=== PATIENT | female | born 1940 | race Caucasian/White ===

== ENCOUNTER 2019-01-05 09:57 | Emergency (ER) | payer MEDICARE ==
[~2019-01-05] VITALS: Ht 160 cm; Wt 76.2 kg
[~2019-01-05 09:57] MED LIST: LEVSOD125 PO; OMEP20ER PO
[2019-01-05] MEDS ORDERED: LEVSOD88 PO (10:22)
[2019-01-05 10:47] LABS: BASOPHILS ABSOLUTE AUTO 0.03 K/mm3 (0.00-0.23); BASOPHILS PERCENT AUTO 1 % (0-2); EOSINOPHILS ABSOLUTE AUTO 0.15 K/mm3 (0.00-0.68); EOSINOPHILS PERCENT AUTO 2 % (0-6); Hematocrit 39.5 % (33.0-51.0); Hemoglobin 13.3 g/dL (11.5-16.0); IMMATURE GRAN ABSOLUTE AUTO 0.01 K/mm3 (0.00-0.10); IMMATURE GRAN PERCENT AUTO 0 % (0-1); LYMPHOCYTES ABSOLUTE AUTO 0.84 K/mm3 (0.84-5.20); LYMPHOCYTES PERCENT AUTO 14 % (21-46); MONOCYTES PERCENT AUTO 8 % (4-13); Mean Corpuscular HGB 31.4 pg (26.0-34.0); Mean Corpuscular HGB Conc 33.7 g/dL (31.5-36.5); Mean Corpuscular Volume 93 fL (80-100); Mean Platelet Volume 10.8 fL (9.1-12.4); NEUTROPHILS PERCENT AUTO 75 % (41-73); Platelet Count 254 K/mm3 (150-400); RDW Coefficient Variation 12.7 % (11.7-14.2); RDW Standard Deviation 43.2 fL (35.1-46.3); Red Blood Cell Count 4.24 M/mm3 (3.80-5.20); White Blood Cell Count 6.13 K/mm3 (4.00-11.30)
[2019-01-05 11:21] LABS: Alanine Aminotransfer (ALT/SGP 21 U/L (12-78); Albumin, Blood 3.5 g/dL (3.4-5.0); Albumin/Globulin Ratio 0.9 (0.8-1.8); Alk Phos 79 U/L (50-136); Anion Gap 9 mmol/L (6-16); Aspartate Aminotrans (AST/SGOT 16 U/L (12-37); Bilirubin, Total 0.4 mg/dL (0.1-1.0); Blood Urea Nitrogen 10 mg/dL (8-24); Bun/Creatinine Ratio 11.8 (12.0-20.0); CO2, Blood 25 mmol/L (21-32); Calcium, Blood 9.2 mg/dL (8.5-10.1); Chloride, Blood 108 mmol/L (98-108); Creatinine, Blood 0.85 mg/dL (0.40-1.00); Globulin, Blood 3.7 g/dL (2.2-4.0); Glomerular Filtration Rate >60 (60-); Glucose, Blood 101 mg/dL (70-99); Potassium, Blood 3.7 mmol/L (3.5-5.5); Sodium, Blood 142 mmol/L (136-145); Total Protein, Blood 7.2 g/dL (6.4-8.2); Troponin I <0.015 ng/mL (0.000-0.040)
[2019-01-05] MEDS ORDERED: Norco 5-325 Ta1 EACH PO (11:53)
[2019-01-05] MEDS ORDERED: Omeprazole20 M1 PO (11:53)
[2019-01-05] MEDS ORDERED: ACYC800 PO (11:57)
== END 2019-01-05 12:11 | disposition home or self-care (01) ==
LOC: ER 09:57
PROVIDERS: Emergency Medicine
DX: K21.9 Gastro-esophageal reflux disease without esophagitis (principal); Z79.899 Other long term (current) drug therapy
CPT/HCPCS: 71046; 80053; 83690; 84484; 85025; 93005; 93010; 96374; 99285-25; J1170

== ENCOUNTER 2023-06-05 09:56 | Emergency (ER) | payer MEDICARE ==
[~2023-06-05] VITALS: Ht 160 cm; Wt 77.1 kg
[~2023-06-05 09:56] MED LIST changes: +ACYC800 PO; +LEVSOD75 PO; +Norco 5-325 Ta1 EACH PO; +Omeprazole20 M1 PO
[2023-06-05 10:28] LABS: BASOPHILS ABSOLUTE AUTO 0.05 K/mm3 (0.00-0.23); BASOPHILS PERCENT AUTO 0 % (0-2); EOSINOPHILS ABSOLUTE AUTO 0.19 K/mm3 (0.00-0.68); EOSINOPHILS PERCENT AUTO 1 % (0-6); Hematocrit 40.7 % (33.0-51.0); IMMATURE GRAN PERCENT AUTO 1 % (0-1); LYMPHOCYTES ABSOLUTE AUTO 0.67 K/mm3 (0.84-5.20); LYMPHOCYTES PERCENT AUTO 4 % (21-46); MONOCYTES PERCENT AUTO 4 % (4-13); Mean Corpuscular HGB 32.5 pg (26.0-34.0); Mean Corpuscular HGB Conc 34.4 g/dL (31.5-36.5); Mean Corpuscular Volume 94 fL (80-100); Mean Platelet Volume 10.4 fL (9.1-12.4); NEUTROPHILS ABSOLUTE AUTO 17.38 K/mm3 (1.96-9.15); NEUTROPHILS PERCENT AUTO 91 % (41-73); Platelet Count 277 K/mm3 (150-400); RDW Coefficient Variation 12.6 % (11.7-14.2); RDW Standard Deviation 43.8 fL (35.1-46.3); Red Blood Cell Count 4.31 M/mm3 (3.80-5.20); White Blood Cell Count 19.19 K/mm3 (4.00-11.30)
[2023-06-05 11:01] LABS: Albumin, Blood 3.7 g/dL (3.4-5.0); Bilirubin, Total 0.5 mg/dL (0.1-1.0); Bun/Creatinine Ratio 9.2 (12.0-20.0); Creatinine, Blood 0.87 mg/dL (0.40-1.00); Globulin, Blood 3.6 g/dL (2.2-4.0); Potassium, Blood 3.9 mmol/L (3.5-5.5); Total Protein, Blood 7.3 g/dL (6.4-8.2)
[2023-06-05 12:46] LABS: Source, Urine Clean Catch
[2023-06-05 12:52] LABS: Bilirubin, Urine Neg (Neg); Blood, Urine 3+ (Neg); Glucose Qualitative, Urine Neg (Neg); Ketones, Urine Neg (Neg); Leukocyte Esterase, Urine 2+ (Neg); Nitrite, Urine Neg (Neg); Protein, Urine 1+ (Neg); Urobilinogen, Urine NORM (Normal)
[2023-06-05 12:59] LABS: Appearance, Urine Clear (Clear); Color, Urine Pale Yellow (P-Yellow)
[2023-06-05 13:00] LABS: Mucus Light (0-Heavy)
[2023-06-05 13:01] LABS: Bacteria Rare /hpf; Squamous Epithelial Cells Few /hpf (Few)
[2023-06-05 15:33] VITALS: BP 131/58
[2023-06-09] MEDS ORDERED: CEFTRIAXONE2 G1 IV (17:05)
[2023-06-09] MEDS ORDERED: XARELTO20 MG PO (17:06)
[2023-06-09] MEDS ORDERED: METO25 PO (17:06)
== END 2023-06-05 15:45 | disposition home or self-care (01) ==
LOC: ER 09:56
PROVIDERS: Student in an Organized Health Care Education/Training Program
DX: R55 Syncope and collapse (principal); R77.8 Other specified abnormalities of plasma proteins; Z79.899 Other long term (current) drug therapy; K21.9 Gastro-esophageal reflux disease without esophagitis; E03.9 Hypothyroidism, unspecified
CPT/HCPCS: 71046; 80053; 81001; 83690; 83880; 84484; 85025; 87086; 93005; 93010; 96374; 99284-25; A9270; J2405; J7030

== ENCOUNTER 2023-06-07 08:50 | Inpatient (IN) | payer MEDICARE ==
[~2023-06-07] VITALS: Ht 160 cm; Wt 77.8 kg
[2023-06-07 11:02] LABS: BASOPHILS ABSOLUTE AUTO 0.04 K/mm3 (0.00-0.23); BASOPHILS PERCENT AUTO 0 % (0-2); EOSINOPHILS ABSOLUTE AUTO 0.02 K/mm3 (0.00-0.68); EOSINOPHILS PERCENT AUTO 0 % (0-6); Hematocrit 38.8 % (33.0-51.0); Hemoglobin 13.3 g/dL (11.5-16.0); IMMATURE GRAN ABSOLUTE AUTO 0.07 K/mm3 (0.00-0.10); IMMATURE GRAN PERCENT AUTO 1 % (0-1); LYMPHOCYTES ABSOLUTE AUTO 0.38 K/mm3 (0.84-5.20); LYMPHOCYTES PERCENT AUTO 3 % (21-46); MONOCYTES ABSOLUTE AUTO 0.85 K/mm3 (0.16-1.47); MONOCYTES PERCENT AUTO 6 % (4-13); Mean Corpuscular HGB 31.7 pg (26.0-34.0); Mean Corpuscular HGB Conc 34.3 g/dL (31.5-36.5); Mean Corpuscular Volume 93 fL (80-100); Mean Platelet Volume 10.7 fL (9.1-12.4); NEUTROPHILS ABSOLUTE AUTO 13.68 K/mm3 (1.96-9.15); NEUTROPHILS PERCENT AUTO 91 % (41-73); Platelet Count 209 K/mm3 (150-400); RDW Coefficient Variation 12.7 % (11.7-14.2); RDW Standard Deviation 43.5 fL (35.1-46.3); Red Blood Cell Count 4.19 M/mm3 (3.80-5.20); White Blood Cell Count 15.04 K/mm3 (4.00-11.30)
[2023-06-07 11:23] LABS: Albumin, Blood 3.3 g/dL (3.4-5.0); Albumin/Globulin Ratio 0.8 (0.8-1.8); BAND PERCENT MAN 4 % (0-8); BASOPHILS PERCENT MAN 0 % (0-2); Bilirubin, Total 0.6 mg/dL (0.1-1.0); Bun/Creatinine Ratio 10.8 (12.0-20.0); Calcium, Blood 8.8 mg/dL (8.5-10.1); Creatinine, Blood 0.93 mg/dL (0.40-1.00); EOSINOPHILS PERCENT MAN 0 % (0-6); Globulin, Blood 4.1 g/dL (2.2-4.0); LYMPHOCYTES ABSOLUTE MAN 0.45 K/mm3 (0.84-5.20); LYMPHOCYTES PERCENT MAN 3 % (21-46); METAMYELOCYTE ABSOLUTE MAN 0.15 K/mm3 (0.00-0.00); METAMYELOCYTE PERCENT MAN 1 % (0-0); MONOCYTES PERCENT MAN 6 % (4-13); NEUTROPHILS ABSOLUTE MAN 13.53 K/mm3 (1.96-9.15); Potassium, Blood 4.1 mmol/L (3.5-5.5); SEG NEUTROPHILS PERCENT MAN 86 % (41-73); TOTAL CELLS COUNTED 100; Total Protein, Blood 7.4 g/dL (6.4-8.2)
[2023-06-07 12:00] LABS: Source, Urine Clean Catch
[2023-06-07 12:04] LABS: Appearance, Urine Clear (Clear); Bilirubin, Urine Neg (Neg); Blood, Urine 4+ (Neg); Color, Urine Yellow (P-Yellow); Glucose Qualitative, Urine Neg (Neg); Ketones, Urine 2+ (Neg); Leukocyte Esterase, Urine 2+ (Neg); Nitrite, Urine Neg (Neg); Protein, Urine 3+ (Neg); Urobilinogen, Urine NORM (Normal); pH, Urine 6.5 (5.0-8.0)
[2023-06-07 12:15] LABS: Bacteria Rare /hpf; Squamous Epithelial Cells Rare /hpf (Few)
[2023-06-07 15:54] LABS: Anti-Xa UFH, PHA Monitoring <0.10 IU/mL; International Normalized Ratio 0.99; Prothrombin Time Results 10.4 Sec (9.7-11.5)
[2023-06-07 17:39] VITALS: BP 146/68
--- NOTE | 2023-06-07 19:16 | NUR ---
ADMIT NOTE NEW ADMIT FROM ER FOR AFIB RVR. ARRIVED TO ROOM ON GURNEY. SBA TO STAND AND TRANSFER TO BED. ALERT AND ORIENTED AND PLEASANT. DENIES CHEST PAIN OR SHORTNESS OF BREATH. REPORT MILD CHEST PALPITATIONS. NOTED TO BE IN AFIB ON TELE RATE 105. ROOM AIR. ELEVATED SBP IN 140S. ABLE TO VOID. PROVIDED WITH WATER. ADMISSION COMPLETED. ON TELE RYTHYM ALTERNATED BETWEEN AFIB RVR 100S AND NSR IN 60S. NOTED ALSO ONE 3 SEC PAUSE. PVCS PRESENT. HEPARIN GTT STARTED AND ABX RUNNING. REPORT GIVEN TO LEAK PATCHER RN.
[2023-06-07 19:17] VITALS: BP 150/62
[2023-06-08 00:51] VITALS: BP 139/66
[2023-06-08 03:52] VITALS: BP 123/62
[2023-06-08 03:59] LABS: BASOPHILS ABSOLUTE AUTO 0.04 K/mm3 (0.00-0.23); BASOPHILS PERCENT AUTO 1 % (0-2); EOSINOPHILS ABSOLUTE AUTO 0.03 K/mm3 (0.00-0.68); EOSINOPHILS PERCENT AUTO 0 % (0-6); Hematocrit 32.6 % (33.0-51.0); Hemoglobin 11.1 g/dL (11.5-16.0); IMMATURE GRAN ABSOLUTE AUTO 0.03 K/mm3 (0.00-0.10); IMMATURE GRAN PERCENT AUTO 0 % (0-1); LYMPHOCYTES ABSOLUTE AUTO 0.94 K/mm3 (0.84-5.20); LYMPHOCYTES PERCENT AUTO 11 % (21-46); MONOCYTES ABSOLUTE AUTO 0.74 K/mm3 (0.16-1.47); MONOCYTES PERCENT AUTO 9 % (4-13); Mean Corpuscular HGB 31.8 pg (26.0-34.0); Mean Corpuscular Volume 93 fL (80-100); Mean Platelet Volume 10.8 fL (9.1-12.4); NEUTROPHILS PERCENT AUTO 79 % (41-73); Platelet Count 214 K/mm3 (150-400); RDW Coefficient Variation 12.7 % (11.7-14.2); RDW Standard Deviation 43.5 fL (35.1-46.3); Red Blood Cell Count 3.49 M/mm3 (3.80-5.20); White Blood Cell Count 8.38 K/mm3 (4.00-11.30)
--- NOTE | 2023-06-08 04:27 | NUR ---
SHIFT SUMMARY: PT ALERT AND ORIENTED X4, ABLE TO FOLLOW COMMANDS AND MAKE NEEDS KNOWN. COOPERATIVE WITH CARE. STRENGTH EQUAL BILATERALLY. BP STABLE. HR SB 50'S THROUGHOUT THE NIGHT, DENIES CP/PRESSURE. PULSES STRONG AND EQUAL THROUGHOUT. SATS >96% ON ROOM AIR. RESPIRATIONS EVEN AND UNLABORED. PT WITH 101 TEMP @0000 VITALS, ORDERS RECEIVED FOR PRN TYLENOL. TEMP NOW 97.7. DILT REMAINS ON STANDBY. HEPARIN GTT IN R. FOREARM @15UNITS/KG/HR. PT WITH POSITIVE BLOOD CULTURES, NOTIFIED. PT WITH REDDNESS TO L.HIP AND THIGH, WARM TO TOUCH. DENIES PAIN. PT SBA TO AND FROM BATHROOM. NO BM THIS SHIFT. GOOD URINARY OUTPUT. BED IN LOW, CALL LIGHT IN REACH, WILL REPORT TO ONCOMING RN.
[2023-06-08 04:29] LABS: Albumin, Blood 2.6 g/dL (3.4-5.0); Albumin/Globulin Ratio 0.8 (0.8-1.8); Bilirubin, Total 0.6 mg/dL (0.1-1.0); Bun/Creatinine Ratio 11.5 (12.0-20.0); Calcium, Blood 8.3 mg/dL (8.5-10.1); Creatinine, Blood 0.96 mg/dL (0.40-1.00); Globulin, Blood 3.3 g/dL (2.2-4.0); Potassium, Blood 3.4 mmol/L (3.5-5.5); Total Protein, Blood 5.9 g/dL (6.4-8.2)
[2023-06-08 08:16] VITALS: BP 138/70
[2023-06-08 11:10] VITALS: BP 148/67
[2023-06-08 14:59] VITALS: BP 158/83
--- NOTE | 2023-06-08 15:09 | NUR ---
TRANSFER NOTE ALERT, ORIENTED, COOPERATIVE. SBA WITH IV POLE TO BATHROOM. SPO2 STABLE ABOVE 92% ON RA. TELE SB-SR IN 55-65. OCCASIONAL RUNS OF SVT AND PVCS. BP ELEVATED AT 140 SYSTOLIC. DENIES CP, SOB, OR PALPITATIONS. TOLERATING CARDIAC DIET AND LIQUIDS. VOIDING WELL. LEFT HIP CELLULITIS BORDERS MARKED BY DR ALTAMIRANO. BLOOD CULTURES BACK, ABX SWITCHED TO ROCEPHIN. HEPARIN STOPPED, ELIQUIS STARTED. WORKED WITH PT. REPORT GIVEN TO MEDICAL FLOOR RN. PATIENT LEFT UNIT FOR MEDICAL FLOOR ROOM 302 AT 1500 VIA WHEELCHAIR.
--- NOTE | 2023-06-08 16:49 | NUR ---
"Spiritual Care Visit | Pt. Request Pt. is awake in bed and welcomes my visit. Pt. is pleasant. Facilitated a life review. Pt. displays evidence of some anxiety about being in the hospital and verbalizes that she is not a woman that practices her jeff. Listen with empathy and a calming presence. Normalized the Pt. expereince and gave some words of motivation and encouragement. Pt. verbalized gratitude for the visit and request this db2 systems programmer to return in the morning if possible."
--- NOTE | 2023-06-08 17:54 | NUR ---
SHIFT SUMMARY: ASSUMED CARE OF PATIENT UPON HER TRANSFER FROM PCU 7. SHE IS A&O X 4, PLEASANT. ON TELEMETRY, SR 68, NO SVT NOTED SINCE TRANSFER. GETTING UP TO BR INDEPENDENTLY. ERYTHEMA ON L HIP IS WELL WITHIN THE MARKED BORDER, NO OPEN AREAS NOTED. DENIES PAIN.
[2023-06-08 19:35] VITALS: BP 167/87
--- NOTE | 2023-06-09 04:28 | NUR ---
SHIFT SUMMARY PT IS A&O4, INDEPENDENT IN THE ROOM, RA, VSS, NO COMPLAINTS OF PAIN OR DISCOMFORT OVERNIGHT, CONTINUE POC
[2023-06-09 05:01] LABS: BASOPHILS ABSOLUTE AUTO 0.05 K/mm3 (0.00-0.23); BASOPHILS PERCENT AUTO 1 % (0-2); EOSINOPHILS ABSOLUTE AUTO 0.26 K/mm3 (0.00-0.68); EOSINOPHILS PERCENT AUTO 4 % (0-6); Hematocrit 35.3 % (33.0-51.0); Hemoglobin 11.8 g/dL (11.5-16.0); IMMATURE GRAN ABSOLUTE AUTO 0.02 K/mm3 (0.00-0.10); IMMATURE GRAN PERCENT AUTO 0 % (0-1); LYMPHOCYTES ABSOLUTE AUTO 1.05 K/mm3 (0.84-5.20); LYMPHOCYTES PERCENT AUTO 18 % (21-46); MONOCYTES ABSOLUTE AUTO 0.84 K/mm3 (0.16-1.47); MONOCYTES PERCENT AUTO 14 % (4-13); Mean Corpuscular HGB 31.4 pg (26.0-34.0); Mean Corpuscular HGB Conc 33.4 g/dL (31.5-36.5); Mean Corpuscular Volume 94 fL (80-100); Mean Platelet Volume 11.4 fL (9.1-12.4); NEUTROPHILS ABSOLUTE AUTO 3.76 K/mm3 (1.96-9.15); NEUTROPHILS PERCENT AUTO 63 % (41-73); Platelet Count 244 K/mm3 (150-400); RDW Coefficient Variation 12.5 % (11.7-14.2); RDW Standard Deviation 43.6 fL (35.1-46.3); Red Blood Cell Count 3.76 M/mm3 (3.80-5.20); White Blood Cell Count 5.98 K/mm3 (4.00-11.30)
[2023-06-09 05:33] LABS: Albumin, Blood 2.8 g/dL (3.4-5.0); Albumin/Globulin Ratio 0.8 (0.8-1.8); Bilirubin, Total 0.3 mg/dL (0.1-1.0); Bun/Creatinine Ratio 13.8 (12.0-20.0); Calcium, Blood 8.7 mg/dL (8.5-10.1); Creatinine, Blood 0.87 mg/dL (0.40-1.00); Globulin, Blood 3.5 g/dL (2.2-4.0); Potassium, Blood 3.8 mmol/L (3.5-5.5); Total Protein, Blood 6.3 g/dL (6.4-8.2)
[2023-06-09 07:33] VITALS: BP 171/74
[2023-06-09 16:07] VITALS: BP 209/89
[2023-06-09] MEDS ORDERED: CEFTRIAXONE2 G1 IV ×2 (17:05)
[2023-06-09] MEDS ORDERED: METO25 PO ×2 (17:06)
[2023-06-09] MEDS ORDERED: XARELTO20 MG PO ×2 (17:06)
== END 2023-06-09 18:46 | disposition home or self-care (01) | DRG 872 ==
LOC: ER 08:50 → PCU 15:10 → MEDS 06-08 14:57 → ENPENDDIS 06-09 16:41 → MEDS 06-09 18:46
PROVIDERS: Emergency Medicine; Physician Assistant; ADMIT Internal Medicine
DX: A41.9 Sepsis, unspecified organism (principal); L03.116 Cellulitis of left lower limb; I48.0 Paroxysmal atrial fibrillation; K21.9 Gastro-esophageal reflux disease without esophagitis; B95.1 Streptococcus, group B, as the cause of diseases classified elsewhere; E66.9 Obesity, unspecified; E78.5 Hyperlipidemia, unspecified; E03.9 Hypothyroidism, unspecified; R79.1 Abnormal coagulation profile; Z85.44 Personal history of malignant neoplasm of other female genital organs; Z79.890 Hormone replacement therapy; Z90.89 Acquired absence of other organs; Z90.710 Acquired absence of both cervix and uterus; Z68.30 Body mass index [BMI] 30.0-30.9, adult
CPT/HCPCS: 36415; 71046; 71260; 76882; 80053; 81001; 83605; 83880; 84145; 84443; 84484; 85025; 85379; 85520; 85610; 85730; 87040; 87147; 93005; 93010; 93306; 96365-59; 96375-59; 96376-59; 97116; 97162; 99285-25; A9270; C1751; J0696; J1644; J2543; J3370; J7030; J7050; Q9967

== ENCOUNTER 2023-06-10 00:14 | Day surgery (SDC) | payer MEDICARE ==
[~2023-06-10 00:14] MED LIST changes: +CEFTRIAXONE2 G1 IV; +METO25 PO; +XARELTO20 MG PO
[2023-06-10 15:09] VITALS: BP 140/75
== END 2023-06-10 15:20 | disposition home or self-care (01) ==
LOC: ATC 00:14
DX: R78.81 Bacteremia (principal); B95.62 Methicillin resistant Staphylococcus aureus infection as the cause of diseases classified elsewhere; E03.9 Hypothyroidism, unspecified; E78.5 Hyperlipidemia, unspecified; I48.91 Unspecified atrial fibrillation
CPT/HCPCS: 96365; J0696

== ENCOUNTER 2023-06-11 03:45 | Day surgery (SDC) | payer MEDICARE ==
[2023-06-11 14:45] VITALS: BP 132/63
== END 2023-06-11 15:04 | disposition home or self-care (01) ==
LOC: ATC 03:45
DX: R78.81 Bacteremia (principal); B95.4 Other streptococcus as the cause of diseases classified elsewhere; I48.91 Unspecified atrial fibrillation; E03.9 Hypothyroidism, unspecified; E78.5 Hyperlipidemia, unspecified; Z79.890 Hormone replacement therapy
CPT/HCPCS: 96365; J0696

== ENCOUNTER 2023-06-12 00:11 | Day surgery (SDC) | payer MEDICARE ==
[2023-06-12 14:38] VITALS: BP 144/70
== END 2023-06-12 15:10 | disposition home or self-care (01) ==
LOC: ATC 00:11
DX: R78.81 Bacteremia (principal); B95.4 Other streptococcus as the cause of diseases classified elsewhere; I48.91 Unspecified atrial fibrillation; E66.9 Obesity, unspecified; E03.9 Hypothyroidism, unspecified; E78.5 Hyperlipidemia, unspecified
CPT/HCPCS: 96365; J0696

== ENCOUNTER 2023-06-13 08:37 | Day surgery (SDC) | payer MEDICARE ==
[2023-06-13 11:08] VITALS: BP 163/81
== END 2023-06-13 11:33 | disposition home or self-care (01) ==
LOC: ATC 08:37
DX: R78.81 Bacteremia (principal); B95.4 Other streptococcus as the cause of diseases classified elsewhere; E03.9 Hypothyroidism, unspecified; E78.5 Hyperlipidemia, unspecified; I48.91 Unspecified atrial fibrillation
CPT/HCPCS: 96365; J0696

== ENCOUNTER 2023-06-14 02:29 | Day surgery (SDC) | payer MEDICARE ==
[2023-06-14 10:54] VITALS: BP 163/87
== END 2023-06-14 11:15 | disposition home or self-care (01) ==
LOC: ATC 02:29
DX: R78.81 Bacteremia (principal); I48.91 Unspecified atrial fibrillation; B95.4 Other streptococcus as the cause of diseases classified elsewhere
CPT/HCPCS: 96365; J0696

== ENCOUNTER 2023-06-15 00:44 | Day surgery (SDC) | payer MEDICARE ==
[2023-06-15 11:01] VITALS: BP 152/73
== END 2023-06-15 11:20 | disposition home or self-care (01) ==
LOC: ATC 00:44
DX: R78.81 Bacteremia (principal); B95.4 Other streptococcus as the cause of diseases classified elsewhere; I48.91 Unspecified atrial fibrillation
CPT/HCPCS: 96365; J0696

== ENCOUNTER 2023-06-16 00:15 | Day surgery (SDC) | payer MEDICARE ==
[2023-06-16 11:10] VITALS: BP 177/64
[2023-06-17] MEDS ORDERED: EUTHYROX75 MC1 PO (10:40)
[2023-06-17] MEDS ORDERED: XARELTO20 MG PO (10:41)
[2023-06-17] MEDS ORDERED: METO25 PO (10:41)
== END 2023-06-16 11:25 | disposition home or self-care (01) ==
LOC: ATC 00:15
DX: R78.81 Bacteremia (principal); B95.4 Other streptococcus as the cause of diseases classified elsewhere; I48.91 Unspecified atrial fibrillation
CPT/HCPCS: 96365; J0696

== ENCOUNTER 2023-06-17 00:52 | Day surgery (SDC) | payer MEDICARE ==
[2023-06-17 10:32] VITALS: BP 159/62
[2023-06-17] MEDS ORDERED: EUTHYROX75 MC1 PO (10:40)
[2023-06-17] MEDS ORDERED: METO25 PO (10:41)
[2023-06-17] MEDS ORDERED: XARELTO20 MG PO (10:41)
[2023-06-18] MEDS ORDERED: CEFTRIAXONE2 G1 IV (11:04)
== END 2023-06-17 10:53 | disposition home or self-care (01) ==
LOC: ATC 00:52
DX: R78.81 Bacteremia (principal); I48.91 Unspecified atrial fibrillation; B95.4 Other streptococcus as the cause of diseases classified elsewhere
CPT/HCPCS: 96365; J0696

== ENCOUNTER 2023-06-18 00:06 | Day surgery (SDC) | payer MEDICARE ==
[~2023-06-18 00:06] MED LIST changes: +EUTHYROX75 MC1 PO
[2023-06-18 10:25] VITALS: BP 159/64
[2023-06-18] MEDS ORDERED: CEFTRIAXONE2 G1 IV (11:04)
== END 2023-06-18 11:20 | disposition home or self-care (01) ==
LOC: ATC 00:06
DX: R78.81 Bacteremia (principal); B95.4 Other streptococcus as the cause of diseases classified elsewhere; E03.9 Hypothyroidism, unspecified; E78.5 Hyperlipidemia, unspecified; Z79.890 Hormone replacement therapy
CPT/HCPCS: 96365; J0696

== ENCOUNTER 2023-06-19 01:20 | Day surgery (SDC) | payer MEDICARE ==
[2023-06-19 11:03] VITALS: BP 151/80
== END 2023-06-19 11:16 | disposition home or self-care (01) ==
LOC: ATC 01:20
DX: R78.81 Bacteremia (principal); B95.4 Other streptococcus as the cause of diseases classified elsewhere; I48.91 Unspecified atrial fibrillation; E03.9 Hypothyroidism, unspecified; E78.5 Hyperlipidemia, unspecified; Z79.890 Hormone replacement therapy
CPT/HCPCS: J0696

== ENCOUNTER 2023-06-20 00:59 | Day surgery (SDC) | payer MEDICARE ==
[2023-06-20 11:13] VITALS: BP 195/81
== END 2023-06-20 11:37 | disposition home or self-care (01) ==
LOC: ATC 00:59
DX: R78.81 Bacteremia (principal); B95.4 Other streptococcus as the cause of diseases classified elsewhere; E66.9 Obesity, unspecified; E03.9 Hypothyroidism, unspecified; E78.5 Hyperlipidemia, unspecified; L03.90 Cellulitis, unspecified; I48.91 Unspecified atrial fibrillation
CPT/HCPCS: J0696

== ENCOUNTER 2023-06-21 01:19 | Day surgery (SDC) | payer MEDICARE ==
[2023-06-21 10:56] VITALS: BP 167/78
== END 2023-06-21 11:22 | disposition home or self-care (01) ==
LOC: ATC 01:19
DX: R78.81 Bacteremia (principal); B95.4 Other streptococcus as the cause of diseases classified elsewhere; E03.9 Hypothyroidism, unspecified; E78.5 Hyperlipidemia, unspecified
CPT/HCPCS: 96365; J0696

== ENCOUNTER 2024-10-22 05:37 | Day surgery (SDC) | payer MEDICARE ==
[2024-10-22] VITALS (21 sets, daily range): BP systolic 80–145; BP diastolic 45–123
[~2024-10-22] VITALS: Ht 160 cm; Wt 67.5 kg
[~2024-10-22 05:37] MED LIST changes: +CEPH500 PO; +METO25ER PO
[2024-10-22] MEDS ORDERED: Acetaminophen 500 MG Tab PO SCH ×2 (06:20→16:00)
[2024-10-22] MEDS ORDERED: OxyCODONE HCL 10 MG TABCR PO SCH (06:20)
[2024-10-22] MEDS ORDERED: Lactated Ringer's 1,000 ML IV SCH ×2 (06:20→09:30)
[2024-10-22] MEDS ORDERED: Chlorhexidine Mouth Care 15 ML UDC MT SCH (06:20)
[2024-10-22] MEDS ORDERED: CeFAZolin Sodium 2,000 MG in NS 100 ML IV SCH ×2 (06:20→16:00)
[2024-10-22] MEDS ORDERED: Ropivacaine 0.5% HCl/Pf 123.125 MG,EPINEPHrine HCL 0.25 MG,Ketorolac Tromethamine 15 MG... INFIL SCH (06:20)
[2024-10-22] MEDS ORDERED: Tranexamic Acid 1,000 MG in NS 100 ML IV SCH (06:20)
[2024-10-22] MEDS ORDERED: CeFAZolin Sodium 2,000 MG VIAL ONE (06:57)
[2024-10-22] MEDS ORDERED: ePHEDrine Sulfate 50 MG/ML 1ML Injection ONE (07:03)
[2024-10-22] MEDS ORDERED: Phenylephrine HCl 100 MCG/ML-NS 10MLSYR (1MG/10ML) ONE (07:04)
[2024-10-22] MEDS ORDERED: Bupivacaine 0.5% HCl 5 MG/ML 30MLVIAL ONE (07:04)
[2024-10-22] MEDS ORDERED: Midazolam HCl 1MG / ML 2ML Vial ONE (07:04)
[2024-10-22] MEDS ORDERED: Dexamethasone Sod Phos 10 MG/ML 1ML VIAL ONE (07:04)
[2024-10-22] MEDS ORDERED: Ketorolac Tromethamine 30mg Vial ONE (07:04)
[2024-10-22] MEDS ORDERED: Ondansetron HCl 2 MG / ML 2ML Vial ONE (07:04)
[2024-10-22] MEDS ORDERED: propofoL 20 ML IV ONE (07:06)
--- NOTE | 2024-10-22 07:12 | NUR ---
History, Chart, Medications and Allergies reviewed before start of procedure. Pre-Op teaching done. Pt verbalizes understanding. Patient confirms NPO status and agrees with scheduled surgery. PT BELONGINGS BAG PLACED UNDER GURNEY. PT WALKING STICK GIVEN TO DAUGHTER IN LAW AT BS.
[2024-10-22] MEDS ORDERED: Glycopyrrolate 0.2 MG/ML 5ML VIAL ONE (07:57)
[2024-10-22] MEDS ORDERED: Labetalol HCL 5 MG/ML 4ML Injection (Single Dose) ONE ×2 (08:04→08:23)
[2024-10-22] MEDS ORDERED: Prochlorperazine Edisylate 10 mg Vial IV PRN (09:20)
[2024-10-22] MEDS ORDERED: Promethazine HCl 25 MG Tab PO PRN (09:20)
[2024-10-22] MEDS ORDERED: OxyCODONE HCL 5 MG TAB PO PRN ×2 (09:25)
[2024-10-22] MEDS ORDERED: Metoclopramide HCl 5MG / ML 2ML Vial IV PRN (09:25)
[2024-10-22] MEDS ORDERED: FLU VACC TS2024-25(6MOS UP)/PF 45 MCG/0.5 ML SYRINGE IM SCH (09:25)
[2024-10-22] MEDS ORDERED: HYDROmorphone HCl/Pf 1MG SYR IV PRN (09:25)
[2024-10-22] MEDS ORDERED: Ondansetron HCl 2 MG / ML 2ML Vial IV PRN (09:25)
[2024-10-22] MEDS ORDERED: Bisacodyl 10 MG Supp PR PRN (09:30)
[2024-10-22] MEDS ORDERED: Magnesium Hydroxide Conc 10 ML UDC PO PRN (09:30)
[2024-10-22] MEDS ORDERED: DiphenhydrAMINE HCL 25 MG Cap PO PRN (09:30)
[2024-10-22] MEDS ORDERED: Tranexamic Acid 100 ML IV ONE (10:40)
[2024-10-22] MEDS ORDERED: Metoprolol Succinate 50 MG TABCR PO ONE (11:50)
[2024-10-22] MEDS ORDERED: Ketorolac Tromethamine 15mg Vial IV SCH (12:00)
--- NOTE | 2024-10-22 13:20 | NUR ---
ASUMPTION OF CARE ASSUMED CARE OF PT AT APPROXIMATELY 1250. PT A&Ox4, CALLS AND COMMUNICATES NEEDS APPROPRIATELY. BP STABLE, AFLUTTER 90-120's, DENIES CP/PRESSURE. SpO2> 92% RA, DENIES SOB. PT ABLE TO FEEL AND MOVE BOTH FEET. DENIES PAIN. AQUACEL DRESSING ON R HIP C/D/I. PT RESTING IN BED, CALL LIGHT IN REACH.
--- NOTE | 2024-10-22 15:00 | NUR ---
UPDATE PT CONVERTED TO SINUS DEBBIE 40's FROM AFLUTTER AT 1430, HYPOTENSIVE WITH SBP 80-90's, MAP 55-60's, ASYMPOMATIC. PHYSICIAN NOTIFIED - ORDERS PLACED FOR 500ml BOLUS.
[2024-10-22] MEDS ORDERED: NS 500 ML IV ONE (15:30)
--- NOTE | 2024-10-22 17:13 | NUR ---
SHIFT SUMMARY SEE PREVIOUS NOTES. A&Ox4, CALLS AND COMMUNICATES NEEDS APPROPRAITELY. BP IMPORVED AFTER 500ml BOLUS; SBP 90-100's, MAP> 65, ASYMPTOMATIC. SINUS 40-60's ASYMPTOMATIC, DENIES CP/PRESSURE. REPORTS MILD SORENESS, MANAGED WITH SCHEDULED MEDICATIONS. PT OOB WITH 1 ASSIST & FWW. NO OTHER EVENTS, WILL REPORT TO ONCOMING RN.
[2024-10-22] MEDS ORDERED: Docusate Sodium 100 MG Cap PO SCH (21:00)
[2024-10-23] VITALS: BP 108/42
[2024-10-23 03:54] LABS: BASOPHILS ABSOLUTE AUTO 0.02 K/mm3 (0.00-0.23); BASOPHILS PERCENT AUTO 0 % (0-2); EOSINOPHILS ABSOLUTE AUTO 0.09 K/mm3 (0.00-0.68); EOSINOPHILS PERCENT AUTO 1 % (0-6); Hematocrit 29.8 % (33.0-51.0); Hemoglobin 9.9 g/dL (11.5-16.0); IMMATURE GRAN ABSOLUTE AUTO 0.02 K/mm3 (0.00-0.10); IMMATURE GRAN PERCENT AUTO 0 % (0-1); LYMPHOCYTES ABSOLUTE AUTO 1.28 K/mm3 (0.84-5.20); LYMPHOCYTES PERCENT AUTO 15 % (21-46); MONOCYTES ABSOLUTE AUTO 0.93 K/mm3 (0.16-1.47); MONOCYTES PERCENT AUTO 11 % (4-13); Mean Corpuscular HGB 30.6 pg (26.0-34.0); Mean Corpuscular HGB Conc 33.2 g/dL (31.5-36.5); Mean Corpuscular Volume 92 fL (80-100); Mean Platelet Volume 10.8 fL (9.1-12.4); NEUTROPHILS ABSOLUTE AUTO 6.32 K/mm3 (1.96-9.15); NEUTROPHILS PERCENT AUTO 73 % (41-73); Platelet Count 201 K/mm3 (150-400); RDW Coefficient Variation 13.9 % (11.7-14.2); RDW Standard Deviation 46.5 fL (35.1-46.3); Red Blood Cell Count 3.24 M/mm3 (3.80-5.20); White Blood Cell Count 8.66 K/mm3 (4.00-11.30)
[2024-10-23 04:00] VITALS: BP 129/52
[2024-10-23 04:24] LABS: Bun/Creatinine Ratio 12.3 (12.0-20.0); Calcium, Blood 8.4 mg/dL (8.5-10.1); Creatinine, Blood 0.9 mg/dL (0.40-1.00); Potassium, Blood 3.5 mmol/L (3.5-5.5)
[2024-10-23] MEDS ORDERED: Levothyroxine Sodium 0.075 MG Tab PO SCH (06:00)
[2024-10-23 07:51] VITALS: BP 146/77
[2024-10-23] MEDS ORDERED: Rivaroxaban 10 MG Tab PO SCH (09:00)
[2024-10-23] MEDS ORDERED: Metoprolol Succinate 25 MG TABCR PO SCH ×2 (09:00)
[2024-10-23 11:11] VITALS: BP 144/62
--- NOTE | 2024-10-23 12:25 | NUR ---
PT [id number] FROM PCU 19. DISCHARGE INSTRUCTIONS WENT OVER WITH THE PT AND HER DAUGHTER. VS ROSE TY .ON TELE SHE IS SB 40'S-60'S. BP STABLE .METOPROLOL NOT GIVEN D/T HR. DISCUSSED W/ DR. SHAW. PARAMETERS OBATINED FOR THE MEDICATION FOR DISCHARGE. SHE IS POD1 FROM [facility]. AQACEL REMAIN C/D/I. PAIN MANAGED WITH ORAL MEDICATIONS. NO URTHER NOTES.
== END 2024-10-23 12:21 | disposition home or self-care (01) ==
LOC: ORSCMMR 05:37 → ORD 07:30 → ORSCMMR 07:30 → PCU 09:54 → ORSCMMR 10-23 12:21
PROVIDERS: Orthopaedic Surgery
PROC: 0SR90J9 Replacement of Right Hip Joint with Synthetic Substitute, Cemented, Open Approach (ICD-10-PCS; principal; 2024-10-22 07:30)
DX: M16.11 Unilateral primary osteoarthritis, right hip (principal); M87.9 Osteonecrosis, unspecified; I10 Essential (primary) hypertension; I48.91 Unspecified atrial fibrillation; E03.9 Hypothyroidism, unspecified; Z79.899 Other long term (current) drug therapy
CPT/HCPCS: 36415; 72170; 80048; 85025; 97110; 97116; 97162; 97530; A6010; A9270; C1713; C1776; J0171; J0690; J0735; J1100; J1171; J1885; J2250; J2371; J2405; J2704; J2795; J7040; J7120

== ENCOUNTER 2025-05-16 11:25 | Emergency (ER) | payer MEDICARE ==
[~2025-05-16] VITALS: Ht 160 cm; Wt 68.0 kg
[2025-05-16 11:53] LABS: BASOPHILS ABSOLUTE AUTO 0.05 K/mm3 (0.00-0.23); BASOPHILS PERCENT AUTO 0 % (0-2); EOSINOPHILS ABSOLUTE AUTO 0.04 K/mm3 (0.00-0.68); EOSINOPHILS PERCENT AUTO 0 % (0-6); Hematocrit 45.8 % (33.0-51.0); Hemoglobin 15.1 g/dL (11.5-16.0); IMMATURE GRAN ABSOLUTE AUTO 0.03 K/mm3 (0.00-0.10); IMMATURE GRAN PERCENT AUTO 0 % (0-1); LYMPHOCYTES ABSOLUTE AUTO 1.66 K/mm3 (0.84-5.20); LYMPHOCYTES PERCENT AUTO 14 % (21-46); MONOCYTES ABSOLUTE AUTO 0.91 K/mm3 (0.16-1.47); MONOCYTES PERCENT AUTO 8 % (4-13); Mean Corpuscular HGB Conc 33.0 g/dL (31.5-36.5); Mean Corpuscular Volume 89 fL (80-100); NEUTROPHILS ABSOLUTE AUTO 9.01 K/mm3 (1.96-9.15); NEUTROPHILS PERCENT AUTO 77 % (41-73); NRBC ABSOLUTE 0.00 K/mm3 (0.00-0.02); NRBC Auto 0.0 /100 WBC (0.0-0.2); Platelet Count 406 K/mm3 (150-400); RDW Coefficient Variation 14.2 % (11.7-14.2); RDW Standard Deviation 45.9 fL (35.1-46.3)
[2025-05-16] MEDS ORDERED: Diltiazem HCl 5 MG / ML 5ML Vial IV ONE ×2 (11:55→12:15)
[2025-05-16] MEDS ORDERED: NS 1,000 ML IV SCH (12:15)
[2025-05-16 12:59] LABS: Alanine Aminotransfer (ALT/SGP 20.0 U/L (12-78); Albumin, Blood 3.8 g/dL (3.4-5.0); Albumin/Globulin Ratio 0.8 (0.8-1.8); Anion Gap 12.0 mmol/L (3-11); Aspartate Aminotrans (AST/SGOT 28.0 U/L (12-37); Bilirubin, Total 0.5 mg/dL (0.1-1.0); Blood Urea Nitrogen 10.0 mg/dL (8-24); CO2, Blood 20.0 mmol/L (21-32); Calcium, Blood 9.5 mg/dL (8.5-10.1); Chloride, Blood 108.0 mmol/L (98-108); Creatinine, Blood 0.85 mg/dL (0.40-1.00); Globulin, Blood 4.8 g/dL (2.2-4.0); Glucose, Blood 114.0 mg/dL (70-99); Potassium, Blood 4.1 mmol/L (3.5-5.5); Sodium, Blood 136.0 mmol/L (136-145); Total Protein, Blood 8.6 g/dL (6.4-8.2)
[2025-05-16] MEDS ORDERED: FentaNYL Citrate 50 MCG/ML 2 ML Injection IV ONE (13:15)
[2025-05-16] MEDS ORDERED: Midazolam HCL 1 MG/ML 5MLVIAL IV ONE (13:15)
[2025-05-16] MEDS ORDERED: NS 1,000 ML IV ONE (13:19)
[2025-05-16 15:15] VITALS: BP 136/68
[2025-05-19] MEDS ORDERED: AMLO5 PO (17:54)
== END 2025-05-16 15:15 | disposition home or self-care (01) ==
LOC: ER 11:25
PROVIDERS: Student in an Organized Health Care Education/Training Program
DX: I48.91 Unspecified atrial fibrillation (principal); E03.9 Hypothyroidism, unspecified; E78.5 Hyperlipidemia, unspecified; Z87.891 Personal history of nicotine dependence; Z79.899 Other long term (current) drug therapy
CPT/HCPCS: 71045; 80053; 83690; 83735; 83880; 84484; 85025; 92960; 93005; 93010; 96361-59; 96374-59; 96375-59; 99285-25; J2250; J3010; J7030

== ENCOUNTER 2025-05-18 08:11 | Observation (INO) | payer MEDICARE ==
[~2025-05-18] VITALS: Ht 160 cm; Wt 65.9 kg
[2025-05-18] MEDS ORDERED: Diltiazem HCl 5 MG / ML 5ML Vial IV ONE ×2 (08:35→09:00)
[2025-05-18 08:38] LABS: BASOPHILS ABSOLUTE AUTO 0.06 K/mm3 (0.00-0.23); BASOPHILS PERCENT AUTO 1 % (0-2); EOSINOPHILS ABSOLUTE AUTO 0.15 K/mm3 (0.00-0.68); EOSINOPHILS PERCENT AUTO 2 % (0-6); Hematocrit 40.4 % (33.0-51.0); Hemoglobin 13.1 g/dL (11.5-16.0); IMMATURE GRAN ABSOLUTE AUTO 0.01 K/mm3 (0.00-0.10); IMMATURE GRAN PERCENT AUTO 0 % (0-1); LYMPHOCYTES ABSOLUTE AUTO 1.24 K/mm3 (0.84-5.20); LYMPHOCYTES PERCENT AUTO 17 % (21-46); MONOCYTES ABSOLUTE AUTO 0.55 K/mm3 (0.16-1.47); MONOCYTES PERCENT AUTO 7 % (4-13); Mean Corpuscular HGB Conc 32.4 g/dL (31.5-36.5); Mean Corpuscular Volume 89 fL (80-100); NEUTROPHILS ABSOLUTE AUTO 5.50 K/mm3 (1.96-9.15); NEUTROPHILS PERCENT AUTO 73 % (41-73); NRBC ABSOLUTE 0.00 K/mm3 (0.00-0.02); NRBC Auto 0.0 /100 WBC (0.0-0.2); Platelet Count 328 K/mm3 (150-400); RDW Coefficient Variation 14.0 % (11.7-14.2); RDW Standard Deviation 45.1 fL (35.1-46.3)
[2025-05-18 09:03] LABS: Alanine Aminotransfer (ALT/SGP 18.0 U/L (12-78); Albumin, Blood 3.6 g/dL (3.4-5.0); Albumin/Globulin Ratio 0.9 (0.8-1.8); Anion Gap 13.0 mmol/L (3-11); Aspartate Aminotrans (AST/SGOT 24.0 U/L (12-37); Bilirubin, Total 0.4 mg/dL (0.1-1.0); Blood Urea Nitrogen 11.0 mg/dL (8-24); CO2, Blood 21.0 mmol/L (21-32); Calcium, Blood 9.2 mg/dL (8.5-10.1); Chloride, Blood 110.0 mmol/L (98-108); Creatinine, Blood 0.92 mg/dL (0.40-1.00); Globulin, Blood 3.9 g/dL (2.2-4.0); Glucose, Blood 118.0 mg/dL (70-99); Potassium, Blood 3.7 mmol/L (3.5-5.5); Sodium, Blood 140.0 mmol/L (136-145); Total Protein, Blood 7.5 g/dL (6.4-8.2)
[2025-05-18] MEDS ORDERED: Metoprolol Tartrate 1 MG/ML 5 ML VIAL IV PRN (11:55)
[2025-05-18 12:00] VITALS: BP 171/130
[2025-05-18 12:30] VITALS: BP 151/99
[2025-05-18] MEDS ORDERED: Mag Sulfate 1 GM/D5% 100ML 100 ML IV STA (12:38)
[2025-05-18 15:00] VITALS: BP 166/107
[2025-05-18] MEDS ORDERED: Potassium Chloride 10 Meq Tablet SA PO SCH (17:00)
[2025-05-18 17:37] VITALS: BP 150/98
--- NOTE | 2025-05-18 18:00 | NUR ---
SHIFT SUMMARY PATIENT AOX4 ABLE TO MAKE NEEDS KNOWN. INDEPENDENT TO THE RESTROOM AND TOLERATING MEALS. SHE IS ON THE DILTIAZEM DRIP TITRATING TO KEEP HR LESS THAN 110. WHEN SHE CAME UP FROM THE ED HER HR WAS IN THE 140S AND THE DILT GTT WAS AT 15 AND TOP DISTRIBUTION EXECUTIVE DOSE PF LOPRESSOR WAS GIVEN. HER HR CAME DOWN TO THE 100-120s THEN HER WAS IN THE 90-100s SO THE DILT WAS DECRESED TO 10. THEN HER HR WAS INCREASING AGAIN 110-120s SO THE DILT WAS INCREASED TO 15.
[2025-05-18 18:43] VITALS: BP 140/102
[2025-05-18 19:48] VITALS: BP 144/85
--- NOTE | 2025-05-18 23:56 | NUR ---
2323 DILT DRIP STOPPED-PATIENTS HEART RATE DROPPED INTO THE 40'S. EKG DONE SHOWING JUNCTIONAL RHYTHM WITH OCCASSIONAL PVC'S. PATIENT IS ASYMPTOMATIC-DENIES LIGHTHEADEDNES/DIZZINESS. RESIDENT CONTACTED AND NOTIFIED OF PATIENTS CHANGE-AT THIS TIME NO NEW ORDERS. 0000- TELEMETRY IS READING SINUS DEBBIE AT 47. PATIENT REMAINS ASYMPTOMATIC.
[2025-05-19] VITALS (7 sets, daily range): BP systolic 131–180; BP diastolic 69–99
--- NOTE | 2025-05-19 00:51 | NUR ---
DISCUSSED WITH IN REGARDS TO PATIENTS HEART RATE-TO MONITOR PATIENT FOR SYMPTOMS OF BRADYCARDIA, PATIENT AT THIS TIME IS ASYMPTOMATIC-IF CHANGES TO NOTIFY DOCTOR. NO NEW ORDERS, NO CARDIOLOGY CONSULT REQUIRED AT THIS TIME PER RESIDENT, MONITOR PATIENTS HEART RATE AND SYMPTOMS.
[2025-05-19 04:16] LABS: BASOPHILS ABSOLUTE AUTO 0.04 K/mm3 (0.00-0.23); BASOPHILS PERCENT AUTO 1 % (0-2); EOSINOPHILS ABSOLUTE AUTO 0.16 K/mm3 (0.00-0.68); EOSINOPHILS PERCENT AUTO 2 % (0-6); Hematocrit 36.6 % (33.0-51.0); Hemoglobin 12.0 g/dL (11.5-16.0); IMMATURE GRAN ABSOLUTE AUTO 0.01 K/mm3 (0.00-0.10); IMMATURE GRAN PERCENT AUTO 0 % (0-1); LYMPHOCYTES ABSOLUTE AUTO 1.70 K/mm3 (0.84-5.20); LYMPHOCYTES PERCENT AUTO 22 % (21-46); MONOCYTES ABSOLUTE AUTO 0.73 K/mm3 (0.16-1.47); MONOCYTES PERCENT AUTO 9 % (4-13); Mean Corpuscular HGB Conc 32.8 g/dL (31.5-36.5); Mean Corpuscular Volume 87 fL (80-100); NEUTROPHILS ABSOLUTE AUTO 5.18 K/mm3 (1.96-9.15); NEUTROPHILS PERCENT AUTO 66 % (41-73); NRBC ABSOLUTE 0.00 K/mm3 (0.00-0.02); NRBC Auto 0.0 /100 WBC (0.0-0.2); Platelet Count 293 K/mm3 (150-400); RDW Coefficient Variation 14.3 % (11.7-14.2); RDW Standard Deviation 45.9 fL (35.1-46.3)
[2025-05-19 04:34] LABS: Alanine Aminotransfer (ALT/SGP 16.0 U/L (12-78); Albumin, Blood 3.2 g/dL (3.4-5.0); Albumin/Globulin Ratio 0.9 (0.8-1.8); Anion Gap 8.0 mmol/L (3-11); Aspartate Aminotrans (AST/SGOT 16.0 U/L (12-37); Bilirubin, Total 0.5 mg/dL (0.1-1.0); Blood Urea Nitrogen 10.0 mg/dL (8-24); CO2, Blood 25.0 mmol/L (21-32); Calcium, Blood 8.8 mg/dL (8.5-10.1); Chloride, Blood 109.0 mmol/L (98-108); Creatinine, Blood 0.94 mg/dL (0.40-1.00); Globulin, Blood 3.5 g/dL (2.2-4.0); Glucose, Blood 102.0 mg/dL (70-99); Magnesium, Blood 2.2 mg/dL (1.6-2.4); Potassium, Blood 3.4 mmol/L (3.5-5.5); Sodium, Blood 139.0 mmol/L (136-145); Total Protein, Blood 6.7 g/dL (6.4-8.2)
--- NOTE | 2025-05-19 05:45 | NUR ---
SHIFT SUMMARY. PATIENT IS A&OX4 WITH SLIGHT CONFUSION WHEN WOKE UP FROM SLEEP ALTHOUGH EASILY REORIENTS SELF. PATIENT ON A DILT gtt AT THE BEGINING OF SHIFT-DILT DRIPPED STOPPED D/T DECREASED HEART RATE-SEE PREVIOUS NOTE. PATIENTS HEART RATE IN THE 50'S WITH AN INCREASE TO THE 70'S WITH ACTIVITY-PATIENT DENIES DIZZINESS, SOB, LIGHTHEADEDNESS WITH LOW HEART RATE. PATIENT IS A SBA TO THE BATHROOM R/T HEART RATE. PATIENT IS PLEASANT AND COOPERATIVE WITH CARE. PATIENT CALLS APPROPRIATELY AND IS ABLE TO MAKE HER NEEDS KNOWN. BED IS LOCKED IN THE LOWEST POSITION WITH CALL LIGHT IN REACH. CARE IS ONGOING.
[2025-05-19] MEDS ORDERED: Amiodarone HCl200 MG PO (15:32)
[2025-05-19] MEDS ORDERED: AMLO5 PO ×2 (17:54→18:05)
--- NOTE | 2025-05-19 18:20 | NUR ---
SHIFT SUMMARY PATIMORGANN AOX4 ABLE TO MAKE NEEDS KNOWN. DENIES CP OR SOB. AMBULATING INDEPENDENT IN THE ROOM TOLERATING MEALS. HR IS SINUS RHYTHM TO DEBBIE WITH SOME JUNCTIONAL ESCAPE DOCTORS AWARE. BLOOD PRESSURE ELEVATED DOCTORS AWARE DOSE OF AMLODIPINE GIVEN BEFORE DISCHARGE AND PRESCRIBED FOR DISCHARGE. SHE UNDERSTANDS ALL DISCHARGE INSTRUCTIONS AND ALL QUESTIONS ANSWERED.
== END 2025-05-19 18:45 | disposition home or self-care (01) ==
LOC: ER 08:11 → PCU 08:12
PROVIDERS: Student in an Organized Health Care Education/Training Program; ADMIT Hospitalist
DX: I48.0 Paroxysmal atrial fibrillation (principal); I10 Essential (primary) hypertension; E03.9 Hypothyroidism, unspecified; E78.5 Hyperlipidemia, unspecified; Z79.890 Hormone replacement therapy; Z79.01 Long term (current) use of anticoagulants; Z79.899 Other long term (current) drug therapy
CPT/HCPCS: 80053; 83735; 83880; 84443; 84484; 85025; 93005; 93010; 94762; 96374; 96375; 96376; 99285-25; A9270; G0378; J3475

== ENCOUNTER 2025-05-24 17:40 | Emergency (ER) | payer MEDICARE ==
[~2025-05-24] VITALS: Ht 160 cm; Wt 65.8 kg
[~2025-05-24 17:40] MED LIST changes: +AMLO5 PO; +Amiodarone HCl200 MG PO
[2025-05-24 18:16] LABS: BASOPHILS ABSOLUTE AUTO 0.05 K/mm3 (0.00-0.23); BASOPHILS PERCENT AUTO 1 % (0-2); EOSINOPHILS ABSOLUTE AUTO 0.13 K/mm3 (0.00-0.68); EOSINOPHILS PERCENT AUTO 2 % (0-6); Hematocrit 41.7 % (33.0-51.0); Hemoglobin 14.1 g/dL (11.5-16.0); IMMATURE GRAN ABSOLUTE AUTO 0.01 K/mm3 (0.00-0.10); IMMATURE GRAN PERCENT AUTO 0 % (0-1); LYMPHOCYTES ABSOLUTE AUTO 1.65 K/mm3 (0.84-5.20); LYMPHOCYTES PERCENT AUTO 21 % (21-46); MONOCYTES ABSOLUTE AUTO 0.82 K/mm3 (0.16-1.47); MONOCYTES PERCENT AUTO 10 % (4-13); Mean Corpuscular HGB Conc 33.8 g/dL (31.5-36.5); Mean Corpuscular Volume 87 fL (80-100); NEUTROPHILS ABSOLUTE AUTO 5.33 K/mm3 (1.96-9.15); NEUTROPHILS PERCENT AUTO 67 % (41-73); NRBC ABSOLUTE 0.00 K/mm3 (0.00-0.02); NRBC Auto 0.0 /100 WBC (0.0-0.2); Platelet Count 406 K/mm3 (150-400); RDW Coefficient Variation 14.3 % (11.7-14.2); RDW Standard Deviation 44.9 fL (35.1-46.3)
[2025-05-24 18:32] LABS: Alanine Aminotransfer (ALT/SGP 20.0 U/L (12-78); Albumin, Blood 3.8 g/dL (3.4-5.0); Albumin/Globulin Ratio 1.0 (0.8-1.8); Anion Gap 12.0 mmol/L (3-11); Aspartate Aminotrans (AST/SGOT 17.0 U/L (12-37); Bilirubin, Total 0.3 mg/dL (0.1-1.0); Blood Urea Nitrogen 12.0 mg/dL (8-24); CO2, Blood 20.0 mmol/L (21-32); Calcium, Blood 9.7 mg/dL (8.5-10.1); Chloride, Blood 106.0 mmol/L (98-108); Creatinine, Blood 1.05 mg/dL (0.40-1.00); Globulin, Blood 4.0 g/dL (2.2-4.0); Glucose, Blood 117.0 mg/dL (70-99); Potassium, Blood 3.7 mmol/L (3.5-5.5); Sodium, Blood 134.0 mmol/L (136-145); Total Protein, Blood 7.8 g/dL (6.4-8.2)
[2025-05-24] MEDS ORDERED: Diltiazem HCl 5 MG / ML 5ML Vial IV ONE ×2 (18:55→19:30)
[2025-05-24 21:15] VITALS: BP 132/69
== END 2025-05-24 22:07 | disposition home or self-care (01) ==
LOC: ER 17:40
PROVIDERS: Student in an Organized Health Care Education/Training Program
DX: I48.91 Unspecified atrial fibrillation (principal); E03.9 Hypothyroidism, unspecified; E78.5 Hyperlipidemia, unspecified; Z87.891 Personal history of nicotine dependence; Z79.899 Other long term (current) drug therapy
CPT/HCPCS: 71046; 80053; 83880; 84484; 85025; 93005; 93010; 96374; 99285-25; A6590; A9270

== ENCOUNTER 2025-05-26 16:29 | Emergency (ER) | payer MEDICARE ==
[~2025-05-26] VITALS: Ht 160 cm; Wt 65.8 kg
[2025-05-26 17:27] LABS: BASOPHILS ABSOLUTE AUTO 0.06 K/mm3 (0.00-0.23); BASOPHILS PERCENT AUTO 1 % (0-2); EOSINOPHILS ABSOLUTE AUTO 0.12 K/mm3 (0.00-0.68); EOSINOPHILS PERCENT AUTO 1 % (0-6); Hematocrit 39.1 % (33.0-51.0); Hemoglobin 13.0 g/dL (11.5-16.0); IMMATURE GRAN ABSOLUTE AUTO 0.03 K/mm3 (0.00-0.10); IMMATURE GRAN PERCENT AUTO 0 % (0-1); LYMPHOCYTES ABSOLUTE AUTO 1.51 K/mm3 (0.84-5.20); LYMPHOCYTES PERCENT AUTO 18 % (21-46); MONOCYTES ABSOLUTE AUTO 0.59 K/mm3 (0.16-1.47); MONOCYTES PERCENT AUTO 7 % (4-13); Mean Corpuscular HGB Conc 33.2 g/dL (31.5-36.5); Mean Corpuscular Volume 87 fL (80-100); NEUTROPHILS ABSOLUTE AUTO 6.26 K/mm3 (1.96-9.15); NEUTROPHILS PERCENT AUTO 73 % (41-73); NRBC ABSOLUTE 0.00 K/mm3 (0.00-0.02); NRBC Auto 0.0 /100 WBC (0.0-0.2); Platelet Count 339 K/mm3 (150-400); RDW Coefficient Variation 14.4 % (11.7-14.2); RDW Standard Deviation 46.2 fL (35.1-46.3)
[2025-05-26 18:01] LABS: Alanine Aminotransfer (ALT/SGP 18.0 U/L (12-78); Albumin, Blood 3.8 g/dL (3.4-5.0); Albumin/Globulin Ratio 1.0 (0.8-1.8); Anion Gap 9.0 mmol/L (3-11); Aspartate Aminotrans (AST/SGOT 23.0 U/L (12-37); Bilirubin, Total 0.4 mg/dL (0.1-1.0); Blood Urea Nitrogen 13.0 mg/dL (8-24); CO2, Blood 24.0 mmol/L (21-32); Calcium, Blood 9.5 mg/dL (8.5-10.1); Chloride, Blood 107.0 mmol/L (98-108); Creatinine, Blood 1.04 mg/dL (0.40-1.00); Globulin, Blood 3.7 g/dL (2.2-4.0); Glucose, Blood 145.0 mg/dL (70-99); Potassium, Blood 3.7 mmol/L (3.5-5.5); Sodium, Blood 136.0 mmol/L (136-145); Total Protein, Blood 7.5 g/dL (6.4-8.2)
[2025-05-26 21:30] VITALS: BP 181/71
== END 2025-05-26 21:56 | disposition home or self-care (01) ==
LOC: ER 16:29
PROVIDERS: Student in an Organized Health Care Education/Training Program
DX: R07.89 Other chest pain (principal); R06.02 Shortness of breath; Z79.890 Hormone replacement therapy; Z79.01 Long term (current) use of anticoagulants; Z79.899 Other long term (current) drug therapy
CPT/HCPCS: 71046; 80053; 84484; 85025; 93005; 93010; 99285-25